=== PATIENT | male | born 1980 | race Caucasian/White ===

== ENCOUNTER 2023-10-27 10:07 | Day surgery (SDC) | payer OTHER ==
[~2023-10-27] VITALS: Ht 180.3 cm; Wt 96.6 kg
[2023-10-27] MEDS ORDERED: fentaNYL citrate 0.05 MG/ML VIAL ONE (11:42)
[2023-10-27] MEDS: fentaNYL citrate 0.05 MG/ML VIAL IVP ONE (11:47)
[2023-10-27] MEDS: LIDOCAINE 2% 100 MG/5 ML UJET TP ONE (11:54)
== END 2023-10-27 12:38 | disposition home or self-care (01) ==
LOC: MOR 10:07 → MMU 10:15 → MOR 12:38
PROVIDERS: ATTEND Internal Medicine Gastroenterology
DX: R14.0 Abdominal distension (gaseous) (principal); K64.8 Other hemorrhoids
CPT/HCPCS: 45378; J3010